=== PATIENT | female | born 1995 ===

== ENCOUNTER 2016-10-08 17:25 | Emergency (ER) | END 2016-10-08 20:00 | disposition left against medical advice (07) | LOC: UCCORT 17:25 | DX: R05 Cough (principal); Z53.21 Procedure and treatment not carried out due to patient leaving prior to being seen by health care provider ==

== ENCOUNTER 2016-10-08 20:18 | Emergency (ER) | payer OTHER ==
[2016-10-08 21:22] VITALS: BP 112/68
--- NOTE | 2016-10-08 21:31 | UC ---
Respiratory Complaint HPI - HPI Summary HPI Summary: 21 yo female with asthma present with runny nose/sinus pressure/cough and wheezing x greater than 2 weeks no f/c out of inhaler took amoxicillin no cp no sob also states she is on her period but it is early - History of Current Complaint Chief Complaint: UCGeneralIllness Stated Complaint: COUGH/CONGESTION Time Seen by Provider: 10/08/16 21:24 Hx Obtained From: Patient Hx Last Menstrual Period: 09/27/16 Onset/Duration: Gradual Onset, Lasting Weeks Timing: Constant Severity Initially: Mild Severity Currently: Moderate Pain Intensity: 2 Pain Scale Used: 0-10 Numeric Character: Cough: Nonproductive Aggravating Factors: Exertion, Deep Breaths Alleviating Factors: Nothing Associated Signs And Symptoms: Positive: Wheezing, Nasal Congestion, Sinus Discomfort Related History: Seasonal Allergies - Allergies/Home Medications Allergies/Adverse Reactions: Allergies Allergy/AdvReac Type Severity Reaction Status Date / Time Dust Mite Extract Allergy Eyes Verified 10/08/16 21:12 Itchy/Swollen/Red/Watery Home Medications: Home Medications Loratadine [Claritin 10 MG CAP] 10 mg PO DAILY 10/08/16 [History Confirmed 10/08] Oxymetazoline 0.05% NASAL SPR* [Afrin 0.05% NASAL SPRAY*] 1 spray NASAL Q12H [History Confirmed 10/08/16] PMH/Surg Hx/FS Hx/Imm Hx Previously Healthy: Yes Respiratory History: Asthma - Surgical History Surgical History: Yes Surgery Procedure, Year, and Place: 2 enzo removals to face - Social History Alcohol Use: Weekly Substance Use Type: None Smoking Status (MU): Light Every Day Tobacco Smoker Type: Cigarettes Amount Used/How Often: 5 cigarettes daily - Immunization History Hx Tetanus, Diphtheria Vaccination: No Vaccination Up to Date: No Review of Systems Constitutional: Negative Skin: Negative Eyes: Negative ENT: Nasal Discharge Respiratory: Cough Cardiovascular: Negative Gastrointestinal: Negative Genitourinary: Negative Motor: Negative Neurovascular: Negative Musculoskeletal: Negative Neurological: Negative Psychological: Negative All Other Systems Reviewed And Are Negative: Yes Physical Exam Triage Information Reviewed: Yes Appearance: Well-Appearing, No Pain Distress, Well-Nourished Vital Signs: Initial Vital Signs Temp 99.4 F 10/08/16 21:13 Pulse 73 10/08/16 21:13 Resp 16 10/08/16 21:13 BP 112/68 10/08/16 21:13 Pulse Ox 100 10/08/16 21:13 Vital Signs Reviewed: Yes Eyes: Positive: Conjunctiva Clear ENT: Positive: Hearing grossly normal, Nasal congestion, Nasal drainage, TMs normal. Negative: Tonsillar swelling, Tonsillar exudate, Trismus, Muffled/ hoarse voice Neck: Positive: Supple, Nontender, No Lymphadenopathy Respiratory: Positive: No respiratory distress, No accessory muscle use, Wheezing - with forced expiration Cardiovascular: Positive: RRR, No Murmur Musculoskeletal: Positive: ROM Intact, No Edema Neurological: Positive: Alert Psychological Exam: Normal Skin Exam: Normal UC Diagnostic Evaluation - Laboratory O2 Sat by Pulse Oximetry: 100 - normal/not hypoxic Respiratory Course/Dx - Differential Dx/Diagnosis Provider Diagnoses: bronchospasm. allergic rhinitis Discharge - Discharge Plan Condition: Stable Disposition: HOME Prescriptions: Azithromycin TAB* [Zithromax TAB*] 250 mg PO DAILY #4 tab Prednisone [Deltasone] 40 mg PO DAILY #10 tab Patient Education Materials: Allergic Rhinitis (ED), Bronchospasm (ED) Referrals: Non Staff,Doctor [Primary Care Provider] -
[2016-10-08] MEDS ORDERED: predniSONE TAB* 20 MG PO ONE (21:35)
[2016-10-08] MEDS ORDERED: Azithromycin TAB* 250 MG PO ONE (21:35)
[2016-10-08] MEDS ORDERED: Albuterol HFA INHALER* 8 gm MDI INH ONE (21:36)
== END 2016-10-08 22:15 | disposition home or self-care (01) ==
LOC: UCCORT 20:18
DX: J45.909 Unspecified asthma, uncomplicated (principal); Z32.02 Encounter for pregnancy test, result negative; F17.210 Nicotine dependence, cigarettes, uncomplicated
CPT/HCPCS: 84702; 87491; 87591; 99213; A9270-GY; G0463; J7512